=== PATIENT | male | born 1960 | race Caucasian/White ===

== ENCOUNTER 2018-06-25 08:02 | Observation (INO) | payer OTHER ==
[~2018-06-25] VITALS: Ht 167.6 cm; Wt 77.6 kg
[~2018-06-25 08:02] MED LIST: DOCUSATE SOD100 M2 PO; LOPRESSOR50 M1 PO; METAMUCIL28 % PO
[2018-06-25 08:28] LABS: HEMATOCRIT 36.4 % (39.0-50.0); IMMATURE GRANULOCYTES 0.3 % (0.0-5.0); MEAN CORPUSCULAR HGB 32.9 pG CALC (26.0-32.0); MEAN CORPUSCULAR HGB CONC 34.9 g/L CALC (32.0-36.0); NEUT# 8.94 thou/uL (1.82-7.42); RED BLOOD COUNT 3.86 mill/uL (4.70-6.10); RED CELL DISTRI WIDTH 12.4 % (11.5-15.5)
[2018-06-25 08:32] LABS: HEMOGLOBIN 12.7 g/dl (14.0-18.0); MEAN CELL VOLUME 94.3 fL CALC (80.0-100.0)
[2018-06-25 08:45] LABS: ANION GAP 17 (6-22 (CALC)); BUN 12 mg/dL (9-20); BUN/CREATININE RATIO 16 (12-20 (CALC)); CARBON DIOXIDE 24 mmol/l (22-30); CHLORIDE 106 mmol/l (95-108); CREATININE 0.8 mg/dL (0.7-1.3); GFR > 60 ML/MIN (>=60 (CALC)); GFR FOR AFR.AMER. > 60 ML/MIN (>=60 (CALC)); POTASSIUM 3.9 mmol/l (3.5-5.1); SODIUM 143 mmol/l (137-146)
[2018-06-25] MEDS ORDERED: CLOPIDOGREL75 MG PO (09:30)
[2018-06-25] MEDS ORDERED: LOPID600 MG PO (09:31)
[2018-06-25] MEDS ORDERED: LANTUS100 UNIT/M SC (09:32)
[2018-06-25] MEDS ORDERED: GABAPENTIN100 MG PO (09:33)
[2018-06-25] MEDS ORDERED: ATORVASTATIN CA20 MG PO (09:33)
[2018-06-25] MEDS ORDERED: CLONAZEPAM1 MG PO ×2 (09:34→09:36)
[2018-06-25] MEDS ORDERED: GLIPIZIDE5 MG PO (09:36)
[2018-06-25] MEDS ORDERED: METFORMIN500 MG PO (09:37)
[2018-06-25] MEDS ORDERED: LISINOPRIL10 MG PO (09:37)
[2018-06-25] MEDS ORDERED: COLACE100 MG PO (09:37)
[2018-06-25] MEDS ORDERED: FERROUS SULF325 M2 PO (09:38)
[2018-06-25 14:39] VITALS: BP 139/66
[2018-06-25 18:00] LABS: URINE BILIRUBIN - DIPSTICK NEGATIVE (NEGATIVE); URINE BLOOD DIPSTICK NEGATIVE (NEGATIVE); URINE CLARITY CLEAR; URINE COLOR YELLOW; URINE GLUCOSE - DIPSTICK NEGATIVE (NEGATIVE); URINE KETONE TRACE mg/dL (NEGATIVE); URINE LEUK ESTERASE NEGATIVE (NEGATIVE); URINE NITRITE - DIPSTICK NEGATIVE (Negative); URINE PH 5.5 (4.5-8.0); URINE PROTEIN - DIPSTICK TRACE mg/dL (NEG-TRACE); URINE SPECIFIC GRAVITY 1.025; URINE UROBILINOGEN - DIPSTICK 0.2 E.U./dL (0.2)
[2018-06-25 20:23] VITALS: BP 132/77
[2018-06-26 00:20] VITALS: BP 144/85
[2018-06-26 04:36] VITALS: BP 141/81
[2018-06-26 09:04] VITALS: BP 141/78
[2018-06-26 11:44] LABS: HEMATOCRIT 36.6 % (39.0-50.0); HEMOGLOBIN 12.6 g/dl (14.0-18.0); IMMATURE GRANULOCYTES 0.5 % (0.0-5.0); MEAN CELL VOLUME 93.1 fL CALC (80.0-100.0); MEAN CORPUSCULAR HGB 32.1 pG CALC (26.0-32.0); MEAN CORPUSCULAR HGB CONC 34.4 g/L CALC (32.0-36.0); NEUT# 7.16 thou/uL (1.82-7.42); RED BLOOD COUNT 3.93 mill/uL (4.70-6.10); RED CELL DISTRI WIDTH 12.1 % (11.5-15.5)
[2018-06-26 12:04] LABS: ANION GAP 18 (6-22 (CALC)); BUN 14 mg/dL (9-20); BUN/CREATININE RATIO 20 (12-20 (CALC)); CARBON DIOXIDE 23 mmol/l (22-30); CHLORIDE 105 mmol/l (95-108); CREATININE 0.7 mg/dL (0.7-1.3); GFR > 60 ML/MIN (>=60 (CALC)); GFR FOR AFR.AMER. > 60 ML/MIN (>=60 (CALC)); SODIUM 143 mmol/l (137-146)
[2018-06-26 16:00] VITALS: BP 131/82
[2018-06-26 20:00] VITALS: BP 140/84
[2018-06-27 00:37] VITALS: BP 138/83
[2018-06-27 05:19] VITALS: BP 117/74
[2018-06-27 05:59] LABS: HEMATOCRIT 32.9 % (39.0-50.0); HEMOGLOBIN 11.2 g/dl (14.0-18.0); IMMATURE GRANULOCYTES 0.4 % (0.0-5.0); MEAN CELL VOLUME 95.1 fL CALC (80.0-100.0); MEAN CORPUSCULAR HGB 32.4 pG CALC (26.0-32.0); NEUT# 3.44 thou/uL (1.82-7.42); RED BLOOD COUNT 3.46 mill/uL (4.70-6.10); RED CELL DISTRI WIDTH 12.2 % (11.5-15.5)
[2018-06-27 06:00] LABS: ANION GAP 15 (6-22 (CALC)); BUN 17 mg/dL (9-20); BUN/CREATININE RATIO 26 (12-20 (CALC)); CARBON DIOXIDE 25 mmol/l (22-30); CHLORIDE 106 mmol/l (95-108); CREATININE 0.7 mg/dL (0.7-1.3); GFR > 60 ML/MIN (>=60 (CALC)); GFR FOR AFR.AMER. > 60 ML/MIN (>=60 (CALC)); POTASSIUM 3.6 mmol/l (3.5-5.1); SODIUM 142 mmol/l (137-146)
[2018-06-27 08:20] VITALS: BP 123/73
[2018-06-27 11:05] VITALS: BP 141/74
[2018-06-27 15:37] VITALS: BP 133/74
[2018-06-27 19:40] VITALS: BP 144/89
[2018-06-28 00:31] VITALS: BP 119/76
[2018-06-28 04:15] VITALS: BP 108/70
[2018-06-28 05:43] LABS: ANION GAP 15 (6-22 (CALC)); BUN 21 mg/dL (9-20); BUN/CREATININE RATIO 32 (12-20 (CALC)); CARBON DIOXIDE 23 mmol/l (22-30); CHLORIDE 108 mmol/l (95-108); CREATININE 0.7 mg/dL (0.7-1.3); GFR > 60 ML/MIN (>=60 (CALC)); GFR FOR AFR.AMER. > 60 ML/MIN (>=60 (CALC)); SODIUM 142 mmol/l (137-146)
[2018-06-28 06:41] LABS: HEMATOCRIT 36.2 % (39.0-50.0); HEMOGLOBIN 12.2 g/dl (14.0-18.0); IMMATURE GRANULOCYTES 0.7 % (0.0-5.0); MEAN CELL VOLUME 94.8 fL CALC (80.0-100.0); MEAN CORPUSCULAR HGB 31.9 pG CALC (26.0-32.0); MEAN CORPUSCULAR HGB CONC 33.7 g/L CALC (32.0-36.0); NEUT# 3.21 thou/uL (1.82-7.42); RED BLOOD COUNT 3.82 mill/uL (4.70-6.10); RED CELL DISTRI WIDTH 12.1 % (11.5-15.5)
[2018-06-28 08:00] VITALS: BP 141/78
[2018-06-28] MEDS ORDERED: DOXYCYCL HYC100 MG PO (10:05)
[2018-06-28] MEDS ORDERED: FLORASTOR250 M1 PO (10:05)
[2018-06-28] MEDS ORDERED: AUGMENTIN875TAB PO (10:05)
[2018-06-28 11:35] VITALS: BP 156/94
[2018-06-28 11:54] VITALS: BP 150/88
== END 2018-06-28 12:51 | disposition designated cancer center or children's hospital (05) | DRG 313 ==
LOC: ED 08:02 → ED-I 11:06 → ED 11:45 → MS2 11:46
PROVIDERS: Family Medicine; ADMIT General Practice; ATTEND General Practice
DX: R07.9 Chest pain, unspecified (principal); L03.115 Cellulitis of right lower limb; I10 Essential (primary) hypertension; I25.10 Atherosclerotic heart disease of native coronary artery without angina pectoris; E11.42 Type 2 diabetes mellitus with diabetic polyneuropathy; I65.29 Occlusion and stenosis of unspecified carotid artery; E78.5 Hyperlipidemia, unspecified; F41.9 Anxiety disorder, unspecified; F17.210 Nicotine dependence, cigarettes, uncomplicated; Z86.73 Personal history of transient ischemic attack (TIA), and cerebral infarction without residual deficits; Z95.5 Presence of coronary angioplasty implant and graft
CPT/HCPCS: G0378; J1650

== ENCOUNTER 2019-12-23 | Emergency (ER) | payer OTHER ==
[~2019-12-23] MED LIST changes: +ATORVASTATIN CA20 MG PO; +AUGMENTIN875TAB PO; +CLONAZEPAM1 MG PO; +CLOPIDOGREL75 MG PO; +COLACE100 MG PO; +DOXYCYCL HYC100 MG PO; +FERROUS SULF325 M2 PO; +FLORASTOR250 M1 PO; +GABAPENTIN100 MG PO; +GLIPIZIDE5 MG PO; +LANTUS100 UNIT/M SC; +LISINOPRIL10 MG PO; +LOPID600 MG PO; +METFORMIN500 MG PO
[2019-12-23 12:25] LABS: IMMATURE GRANULOCYTES 0.4 % (0.0-5.0); MEAN CELL VOLUME 90.5 fL CALC (80.0-100.0); MEAN CORPUSCULAR HGB 30.5 pG CALC (26.0-32.0); MEAN CORPUSCULAR HGB CONC 33.7 g/L CALC (32.0-36.0); NEUT# 2.96 thou/uL (1.82-7.42); RED BLOOD COUNT 4.52 mill/uL (4.70-6.10); RED CELL DISTRI WIDTH 12.8 % (11.5-15.5)
[2019-12-23 12:33] LABS: HEMATOCRIT 40.9 % (39.0-50.0); HEMOGLOBIN 13.8 g/dl (14.0-18.0)
[2019-12-23 12:42] LABS: ALBUMIN 4.8 g/dL (3.2-5.0); ALKALINE PHOSPHATASE 116 u/l (38-126); ANION GAP 18 (6-22 (CALC)); BUN 17 mg/dL (8-23); BUN/CREATININE RATIO 23 (12-20 (CALC)); CARBON DIOXIDE 21 mmol/l (22-30); CHLORIDE 106 mmol/l (95-108); CREATININE 0.7 mg/dL (0.7-1.3); ETHYL ALCOHOL 0 mg/dl (0-30); GFR > 60 ML/MIN (>=60 (CALC)); GFR FOR AFR.AMER. > 60 ML/MIN (>=60 (CALC)); POTASSIUM 4.4 mmol/l (3.5-5.1); SGOT/AST 28 u/l (19-48); SODIUM 141 mmol/l (137-146); TOTAL PROTEIN 7.8 g/dL (6.3-8.2)
[2019-12-23 12:45] LABS: BILIRUBIN, TOTAL 0.7 mg/dL (0.0-1.4)
[2019-12-23] MEDS ORDERED: HUMULIN R500 UNIT/1 (13:41)
[2019-12-23] MEDS ORDERED: LANTUS100 UNIT/M (13:41)
[2019-12-23] MEDS ORDERED: LISINOPRIL10 MG PO (13:42)
[2019-12-23] MEDS ORDERED: METOPROL TAR25 M1 PO (13:42)
[2019-12-23 14:09] LABS: URINE BILIRUBIN - DIPSTICK NEGATIVE (NEGATIVE); URINE BLOOD DIPSTICK NEGATIVE (NEGATIVE); URINE COLOR YELLOW; URINE GLUCOSE - DIPSTICK >=1000 mg/dL (NEGATIVE); URINE KETONE NEGATIVE (NEGATIVE); URINE LEUK ESTERASE NEGATIVE (NEGATIVE); URINE NITRITE - DIPSTICK NEGATIVE (Negative); URINE PROTEIN - DIPSTICK NEGATIVE (NEG-TRACE); URINE UROBILINOGEN - DIPSTICK 0.2 E.U./dL (0.2)
[2019-12-23 14:11] LABS: BARBITURATES NEGATIVE (NEGATIVE); COCAINE NEGATIVE (NEGATIVE); METHADONE NEGATIVE (NEGATIVE); OXCYCODONE NEGATIVE (NEGATIVE); TETRAHYDROCANNABIONOL NEGATIVE (NEGATIVE); TRICYLIC ANTIDEPRESSANTS NEGATIVE (NEGATIVE)
== END 2019-12-23 14:45 | disposition designated cancer center or children's hospital (05) | DRG 918 ==
PROVIDERS: Family Medicine
DX: T46.3X2A Poisoning by coronary vasodilators, intentional self-harm, initial encounter (principal); I10 Essential (primary) hypertension; I25.10 Atherosclerotic heart disease of native coronary artery without angina pectoris; E11.9 Type 2 diabetes mellitus without complications; Y92.149 Unspecified place in prison as the place of occurrence of the external cause; Z86.73 Personal history of transient ischemic attack (TIA), and cerebral infarction without residual deficits; Z95.5 Presence of coronary angioplasty implant and graft; Z79.4 Long term (current) use of insulin

== ENCOUNTER 2020-09-17 09:34 | Emergency (ER) | payer OTHER ==
[~2020-09-17] VITALS: Ht 167.6 cm; Wt 74.0 kg
[~2020-09-17 09:34] MED LIST changes: +HUMULIN R500 UNIT/1; +LANTUS100 UNIT/M; +METOPROL TAR25 M1 PO
[2020-09-17 10:07] LABS: IMMATURE GRANULOCYTES 0.3 % (0.0-5.0); MEAN CORPUSCULAR HGB 30.6 pG CALC (26.0-32.0); MEAN CORPUSCULAR HGB CONC 32.2 g/dL CAL (32.0-36.0); NEUT# 1.95 thou/uL (1.82-7.42); RED BLOOD COUNT 3.17 mill/uL (4.70-6.10); RED CELL DISTRI WIDTH 12.8 % (11.5-15.5)
[2020-09-17 10:33] LABS: INTERNATIONAL NORMALIZED RATIO 1.2 RATIO (0.7-1.3); PROTHROMBIN TIME 12.3 SECONDS (9.0-12.5)
[2020-09-17 10:39] LABS: BILIRUBIN, TOTAL 0.5 mg/dL (0.0-1.4); BUN 13 mg/dL (8-23); BUN/CREATININE RATIO 14 (12-20 (CALC)); CARBON DIOXIDE 20 mmol/l (22-30); CHLORIDE 106 mmol/l (95-108); CREATININE 0.9 mg/dL (0.7-1.3); GFR > 60 ML/MIN (>=60 (CALC)); GFR FOR AFR.AMER. > 60 ML/MIN (>=60 (CALC)); LIPASE 180 u/l (23-300); SODIUM 135 mmol/l (137-146); TOTAL PROTEIN 6.9 g/dL (6.3-8.2)
[2020-09-17 10:44] LABS: D-DIMER 0.6 mg/L (0.19-0.60)
[2020-09-17 10:46] LABS: HEMATOCRIT 30.1 % (39.0-50.0); HEMOGLOBIN 9.7 g/dl (14.0-18.0)
[2020-09-17 10:48] LABS: ALBUMIN 3.7 g/dL (3.2-5.0); ALKALINE PHOSPHATASE 53 u/l (38-126); ANION GAP 12 (6-22 (CALC)); C-REACTIVE PROTEIN > 9.0 mg/dL (0-0.9); POTASSIUM 3.1 mmol/l (3.5-5.1); SGOT/AST 91 u/l (19-48)
--- NOTE | 2020-09-17 11:28 | NUR ---
PT PLACED ON 15L HFNC PRE DR. PANCHAL. SO2 92%. RN AWARE. PT IN NO DISTRESS AT THIS TIME.
[2020-09-17] MEDS ORDERED: PROTONIX40 M2 PO (12:24)
[2020-09-17] MEDS ORDERED: FERROUS SULF325 M3 PO (12:24)
[2020-09-17] MEDS ORDERED: ATORVASTATIN CA80 MG PO (12:26)
[2020-09-17] MEDS ORDERED: KAPSPARGO SPRIN25 MG PO (12:26)
[2020-09-17] MEDS ORDERED: LANTUS100 UNIT/M SC (12:27)
[2020-09-17] MEDS ORDERED: VENTOLIN HF1 IN (12:28)
[2020-09-17] MEDS ORDERED: LOPID600 MG PO (12:29)
[2020-09-17] MEDS ORDERED: CLONAZEPAM1 MG PO ×2 (12:29)
[2020-09-17] MEDS ORDERED: DOCUSATE SOD100 MG PO (12:29)
[2020-09-17] MEDS ORDERED: MIRTAZAPINE15 MG PO (12:30)
[2020-09-17] MEDS ORDERED: METFORMIN HYDR850 MG PO (12:30)
[2020-09-17] MEDS ORDERED: AUGMENTIN500TAB PO (12:31)
[2020-09-17] MEDS ORDERED: PLAVIX75 MG PO (12:31)
[2020-09-17] MEDS ORDERED: ASPIRIN 81 LOW81 MG PO (12:32)
[2020-09-17] MEDS ORDERED: HUMULIN R500 UNIT/1 SC (12:33)
[2020-09-17] MEDS ORDERED: METFORMIN500 M2 PO (12:34)
[2020-09-17 13:15] VITALS: BP 122/77
== END 2020-09-17 13:15 | DRG 177 ==
LOC: ED 09:34
PROVIDERS: Family Medicine
DX: U07.1 COVID-19 (principal); J96.00 Acute respiratory failure, unspecified whether with hypoxia or hypercapnia; I10 Essential (primary) hypertension; E11.9 Type 2 diabetes mellitus without complications; I25.10 Atherosclerotic heart disease of native coronary artery without angina pectoris; E78.5 Hyperlipidemia, unspecified; F41.9 Anxiety disorder, unspecified; F32.9 Major depressive disorder, single episode, unspecified; Z79.4 Long term (current) use of insulin; Z95.5 Presence of coronary angioplasty implant and graft; Z86.73 Personal history of transient ischemic attack (TIA), and cerebral infarction without residual deficits
CPT/HCPCS: Q9967